=== PATIENT | female | born 1985 | race Caucasian/White ===

== ENCOUNTER 2017-10-18 02:34 | Emergency (ER) | payer BC ==
[2017-10-18] MEDS ORDERED: predniSONE TAB* 20 MG PO ONE (03:02)
[2017-10-18] MEDS ORDERED: Acetaminophen TAB* 325 MG PO ONE (03:02)
[2017-10-18] MEDS ORDERED: Amoxicillin/Clavulanate TAB* 875 MG PO ONE (03:31)
[2017-10-18 03:57] VITALS: BP 106/71
--- NOTE | 2017-10-18 06:16 | ED ---
Jackie Kowalski Jason, scribed for Joe Bourgeois MD on 10/18/17 at 0439 . Throat Pain/Nasal Congestion - HPI Summary HPI Summary: This patient is a 32 year old F presenting to [facility] accompanied by male physician liaison with a chief complaint of sore throat since 4 days ago. The patient rates the pain 8/10 in severity. Symptoms aggravated by nothing. Symptoms alleviated by nothing. Patient reports throat pain. Patient denies vomiting, and diarrhea. - History of Current Complaint Chief Complaint: EDThroatPain Time Seen by Provider: 10/18/17 02:40 Hx Obtained From: Patient Onset/Duration: Gradual Onset, Lasting Days - since 4 days ago - Allergies/Home Medications Allergies/Adverse Reactions: Allergies Allergy/AdvReac Type Severity Reaction Status Date / Time No Known Allergies Allergy Verified 10/18/17 02:40 PMH/Surg Hx/FS Hx/Imm Hx Previously Healthy: Yes Opthamlomology History: Denies: Hx Legally Blind EENT History: Denies: Hx Deafness Infectious Disease History: No Infectious Disease History: Denies: Traveled Outside the [place] in Last 30 Days - Family History Known Family History: Negative: Renal Disease, Blood Disorder - Social History Alcohol Use: None Substance Use Type: Reports: None Smoking Status (MU): Never Smoked Tobacco Review of Systems Negative: Fever Positive: Sore Throat All Other Systems Reviewed And Are Negative: Yes Physical Exam - Summary Physical Exam Summary: VITAL SIGNS: Reviewed. GENERAL: ~Patient is a well-developed and nourished female who is lying comfortable in the stretcher. Patient is not in any acute respiratory distress. HEAD AND FACE: No signs of trauma. No ecchymosis, hematomas or skull depressions. No sinus tenderness. EYES: PERRLA, EOMI x 2, No injected conjunctiva, no nystagmus. EARS: Hearing grossly intact. Ear canals and tympanic membranes are within normal limits. MOUTH: Oropharynx within normal limits. THROAT: Pharyngeal hyperemia with no exudate. NECK: Supple, trachea is midline, no adenopathy, no JVD, no carotid bruit, no c- spine tenderness, neck with full ROM. CHEST: Symmetric, no tenderness at palpation LUNGS: Clear to auscultation bilaterally. No wheezing or crackles. CVS: Regular rate and rhythm, S1 and S2 present, no murmurs or gallops appreciated. ABDOMEN: Soft, non-tender. No signs of distention. No rebound no guarding, and no masses palpated. Bowel sounds are normal. EXTREMITIES: FROM in all major joints, no edema, no cyanosis or clubbing. NEURO: Alert and oriented x 3. No acute neurological deficits. Speech is normal and follows commands. SKIN: Dry and warm Triage Information Reviewed: Yes Vital Signs On Initial Exam: Initial Vitals Temp Pulse Resp BP Pulse Ox 98.0 F 109 16 114/81 99 10/18/17 02:38 10/18/17 02:38 10/18/17 02:38 10/18/17 02:38 10/18/17 02:38 Vital Signs Reviewed: Yes Diagnostics - Vital Signs Vital Signs Temp Pulse Resp BP Pulse Ox 10/18/17 03:56 98.5 F 88 18 106/71 99 10/18/17 02:38 98.0 F 109 16 114/81 99 - Laboratory Lab Results: Lab Results 10/18/17 10/18/17 Range/Units 03:13 03:16 Influenza A (Rapid) Negative (Negative) Influenza B (Rapid) Negative (Negative) Group A Strep Rapid Positive H (Negative) Lab Statement: Any lab studies that have been ordered have been reviewed, and results considered in the medical decision making process. EENT Course/Dx - Course Course Of Treatment: This patient is a 32 year old F presenting to [facility] accompanied by male physician liaison with a chief complaint of sore throat since 4 days ago. The patient rates the pain 8/10 in severity. Symptoms aggravated by nothing. Symptoms alleviated by nothing. Patient reports throat pain. Patient denies vomiting, and diarrhea. In the ED course the patient was given acetaminophen, amoxicillin, and prednisone. Test results show that the patient is positive for strep throat and negative for influenza A and B. Assessment/Plan: Patient will be discharged with antibiotics and follow up with PCP for any worsening symptoms. Additionally, the patient was advised to reutn to [facility] for any new or worsening symptoms. The patient is agreeable with this plan. Dx of strep throat. - Diagnoses Provider Diagnoses: Strep throat Discharge - Discharge Plan Condition: Stable Disposition: HOME Prescriptions: Amoxicillin/Clavulanate TAB* [Augmentin TAB 875*] 875 mg PO BID #20 tab predniSONE TAB* [Deltasone TAB*] 40 mg PO DAILY #4 tab Patient Education Materials: Strep Throat (ED) Referrals: No Primary Care Phys,NOPCP [Primary Care Provider] - Additional Instructions: RETURN TO EMERGENCY DEPARTMENT FOR ANY NEW OR WORSENING SYMPTOMS The documentation as recorded by the Jackie boyce Jason accurately reflects the service I personally performed and the decisions made by , Joe Bourgeois MD.
== END 2017-10-18 03:57 | disposition home or self-care (01) ==
LOC: ED 02:34
DX: J02.0 Streptococcal pharyngitis (principal)
CPT/HCPCS: 87502; 87651; 99282; A9270-GY; J7512

== ENCOUNTER 2018-02-01 19:38 | Emergency (ER) | payer BC, OTHER ==
[2018-02-01 20:05] VITALS: BP 113/69
[2018-02-01] MEDS ORDERED: Sulfamethox/Trimethoprim DS 800/160* TAB PO ONE ×2 (20:57→20:59)
[2018-02-01] MEDS ORDERED: Phenazopyridine TAB* 100 MG PO ONE ×2 (20:58→20:59)
--- NOTE | 2018-02-01 21:05 | UC ---
Laura Kowalski Emily, scribed for Bret Dietz MD on 02/01/18 at 2057 . Complaint Female HPI - HPI Summary HPI Summary: This patient is a 32 year old F presenting to urgent care with a chief complaint of dysuria that began earlier today. The patient rates the pain 3/10 in severity. Symptoms aggravated by nothing. Symptoms alleviated by nothing. Patient reports increased urinary frequency. Patient denies fever and chills. Pt reports a history of UTI. Medications reviewed. Allergies reviewed. - History Of Current Complaint Chief Complaint: UCGU Stated Complaint: FREQ URINATION Time Seen by Provider: 02/01/18 20:36 Hx Last Menstrual Period: [id number] Pain Intensity: 3 - Allergies/Home Medications Allergies/Adverse Reactions: Allergies Allergy/AdvReac Type Severity Reaction Status Date / Time No Known Allergies Allergy Verified 02/01/18 20:06 PMH/Surg Hx/FS Hx/Imm Hx Previously Healthy: Yes Endocrine History: Other Other Endocrine History: Negative diabetes Cardiovascular History: Other Other Cardiovascular History: Negative HTN - Surgical History Surgical History: None - Family History Known Family History: Negative: Renal Disease, Blood Disorder - Social History Occupation: Employed Full-time Lives: With Family Alcohol Use: None Substance Use Type: None Smoking Status (MU): Never Smoked Tobacco Review of Systems Constitutional: Other - Negative fever and chills Genitourinary: Dysuria, Frequency All Other Systems Reviewed And Are Negative: Yes Physical Exam - Summary Physical Exam Summary: General: well-appearing, no pain distress Skin: warm, color reflects adequate perfusion, dry Head: normal Eyes: EOMI, ANDREINA ENT: normal Neck: supple, nontender Respiratory: CTA, breath sounds present Cardiovascular: RRR Abdomen: soft, nontender Bowel: present Musculoskeletal: normal, strength/ROM intact Neurological: sensory/motor intact, A&O x3 Psychological: affect/mood appropriate Triage Information Reviewed: Yes Vital Signs: Initial Vital Signs Temp 98.4 F 02/01/18 20:01 Pulse 89 02/01/18 20:01 Resp 16 02/01/18 20:01 BP 113/69 02/01/18 20:01 Pulse Ox 100 02/01/18 20:01 Vital Signs Reviewed: Yes Complaint Female Dx - Course Course Of Treatment: NO FEVER/FLANK PAIN. F/U PMD; RECHECK SOONER IF WORSE. - Differential Dx/Diagnosis Provider Diagnoses: UTI Discharge - Sign-Out/Discharge Documenting (check all that apply): Discharge/Admit/Transfer - Discharge Plan Condition: Stable Disposition: HOME Prescriptions: Phenazopyridine 200 mg (NF) [Pyridium 200 MG tab *] 200 mg PO TID PRN #10 tab PRN Reason: Pain Sulfamethox/Trimethoprim DS* [Bactrim DS 800/160 TAB*] 1 tab PO BID #12 tab Patient Education Materials: Urinary Tract Infection in Women (ED) [place]errals: [facility] [place] [facility] [place]] Additional Instructions: FOLLOW UP WITH YOUR DOCTOR IF NOT COMPLETELY IMPROVED. GET RECHECKED FOR ANY WORSENING OF YOUR CONDITION; PAIN, FEVER, YOU FEEL ILL OR QUESTIONS OR CONCERNS. - Billing Disposition and Condition Condition: STABLE Disposition: HOME The documentation as recorded by the Laura boyce Emily accurately reflects the service I personally performed and the decisions made by me, Bret Dietz MD.
--- NOTE | 2018-02-03 16:52 | UC ---
- Progress Note Progress Note: urine culture no growth follow-up 02/03/18 1782 Discharge - Sign-Out/Discharge Documenting (check all that apply): Post-Discharge Follow Up - Discharge Plan Condition: Stable Disposition: HOME Prescriptions: Phenazopyridine 200 mg (NF) [Pyridium 200 MG tab *] 200 mg PO TID PRN #10 tab PRN Reason: Pain Sulfamethox/Trimethoprim DS* [Bactrim DS 800/160 TAB*] 1 tab PO BID #12 tab Patient Education Materials: Urinary Tract Infection in Women (ED) Referrals: [facility] – [place] [facility] [Outside] Additional Instructions: FOLLOW UP WITH YOUR DOCTOR IF NOT COMPLETELY IMPROVED. GET RECHECKED FOR ANY WORSENING OF YOUR CONDITION; PAIN, FEVER, YOU FEEL ILL OR QUESTIONS OR CONCERNS. - Billing Disposition and Condition Condition: STABLE Disposition: HOME
== END 2018-02-01 21:10 | disposition home or self-care (01) ==
LOC: UCEAST 19:38
DX: N39.0 Urinary tract infection, site not specified (principal); Z87.440 Personal history of urinary (tract) infections
CPT/HCPCS: 81003; 87086; 99213; A9270-GY; G0463